=== PATIENT | male | born 1950 | race African-American/Black ===

== ENCOUNTER 2023-05-18 07:22 | Outpatient (CLI) | payer OTHER ==
[2023-05-18] MEDS ORDERED: Iopamidol 300 61% 100 ML VIAL FS ONE (10:06)
== END 2023-05-18 07:23 | disposition home or self-care (01) ==
LOC: CSHCT 07:22
PROVIDERS: ATTEND Internal Medicine
DX: Z85.9 Personal history of malignant neoplasm, unspecified (principal); R91.1 Solitary pulmonary nodule; C7A.8 Other malignant neuroendocrine tumors; R91.8 Other nonspecific abnormal finding of lung field
CPT/HCPCS: 71260; 74177; 82565

== ENCOUNTER 2024-11-01 11:47 | Emergency (ER) | payer OTHER | END 2024-11-01 13:20 | disposition home or self-care (01) | LOC: CSHERS 11:47 | DX: Z53.21 Procedure and treatment not carried out due to patient leaving prior to being seen by health care provider (principal) | CPT/HCPCS: 93005 ==